=== PATIENT | male | born 1945 | race Caucasian/White ===

== ENCOUNTER → 2016-11-11 | Outpatient (CLI) | payer MEDICARE, OTHER ==
[~2016-11-11] MED LIST: AMITRIPTYLINE25 MG PO; AMLODIPINE5 MG PO; AMOXICILLIN500 MG PO; ANUSOL-HC25 MG R; ASPIRIN81 M1 PO; AZASAN50 MG PO; AZATHIOPRINE50 MG PO; Bactrim Ds 8001 TAB PO; DEXILANT; FLOMAX0.4 MG PO; FLUOXETINE20 MG PO; GABAPENTIN300 MG PO; LISINOPRIL5 MG PO; NITROSTAT0.4 MG SL; OMEPRAZOLE MAGN20 MG PO; ZITHROMAX Z PA250 MG PO
[2016-11-11 10:55] LABS: ALBUMIN 3.3 gm/dl (3.1-4.5); PHOSPHOROUS 3.1 mg/dL (2.5-4.9); POTASSIUM 4.4 mmol/L (3.5-5.1)
== END | disposition home or self-care (01) ==
LOC: LAB 02:18
PROVIDERS: Internal Medicine Nephrology
DX: N18.3 Chronic kidney disease, stage 3 (moderate) (principal)

== ENCOUNTER → 2016-11-25 | Outpatient (CLI) | payer MEDICARE, OTHER | END | disposition home or self-care (01) | LOC: LAB 02:17 | PROVIDERS: Internal Medicine Nephrology | DX: N18.3 Chronic kidney disease, stage 3 (moderate) (principal) ==

== ENCOUNTER → 2017-02-26 | Outpatient (CLI) | payer MEDICARE, OTHER ==
[2017-02-26 09:59] LABS: BASO % 0.5 % (0.0-1.0); EOS # 0.1 10*3/uL (0.0-0.4); EOS % 1.2 % (1.0-4.0); HEMATOCRIT 37.6 % (42.0-52.0); HEMOGLOBIN 12.6 g/dl (14.0-18.0); LYMPH # 0.8 10*3/uL (1.3-4.4); LYMPH % 10.3 % (27.0-41.0); MEAN CELL VOLUME 93.8 fl (80.0-94.0); MEAN CORPUSCULAR HGB 31.4 pg (27.0-31.0); MEAN CORPUSCULAR HGB CONC 33.5 g/dl (33.0-37.0); MEAN PLATELET VOLUME 10.6 fl (9.6-12.3); MONO # 0.5 10*3/uL (0.1-1.0); NEUT # 6.3 10*3/uL (2.3-7.9); NEUT % 81.6 % (47.0-73.0); PLATELET COUNT AUTOMATED 185 10*3/uL (130-400); RED BLOOD COUNT 4.01 10*6/uL (4.50-5.90); RED CELL DISTRI WIDTH 13.5 % (0-14.5); WHITE BLOOD COUNT 7.7 10*3/uL (4.8-10.8)
[2017-02-26 10:26] LABS: C-REACTIVE PROTEIN 0.38 MG/DL (0-0.3)
[2017-02-27 07:08] LABS: COMPLEMENT C4 001834 20 mg/dL (14-44)
== END | disposition home or self-care (01) ==
LOC: LAB 01:25
PROVIDERS: Urology
DX: N40.1 Benign prostatic hyperplasia with lower urinary tract symptoms (principal); I77.6 Arteritis, unspecified

== ENCOUNTER → 2017-03-18 | Outpatient (CLI) | payer MEDICARE, OTHER | END | disposition home or self-care (01) | LOC: CARD 00:56 | DX: I07.1 Rheumatic tricuspid insufficiency (principal); I37.1 Nonrheumatic pulmonary valve insufficiency ==

== ENCOUNTER → 2017-04-28 | Outpatient (CLI) | payer MEDICARE, OTHER ==
[~2017-04-28] MED LIST changes: +HYDROCODONE BIT1 T11 PO; +PROZAC20 MG PO; +Rocaltrol0.25 MCG PO
[2017-04-28 10:05] LABS: BASO % 0.7 % (0.0-1.0); EOS # 0.1 10*3/uL (0.0-0.4); EOS % 1.2 % (1.0-4.0); HEMATOCRIT 35.3 % (42.0-52.0); HEMOGLOBIN 11.7 g/dl (14.0-18.0); LYMPH # 0.7 10*3/uL (1.3-4.4); LYMPH % 11.9 % (27.0-41.0); MEAN CELL VOLUME 95.7 fl (80.0-94.0); MEAN CORPUSCULAR HGB 31.7 pg (27.0-31.0); MEAN CORPUSCULAR HGB CONC 33.1 g/dl (33.0-37.0); MEAN PLATELET VOLUME 10.2 fl (9.6-12.3); MONO # 0.4 10*3/uL (0.1-1.0); NEUT # 4.6 10*3/uL (2.3-7.9); NEUT % 78.7 % (47.0-73.0); PLATELET COUNT AUTOMATED 180 10*3/uL (130-400); RED BLOOD COUNT 3.69 10*6/uL (4.50-5.90); RED CELL DISTRI WIDTH 14.2 % (0-14.5); WHITE BLOOD COUNT 5.9 10*3/uL (4.8-10.8)
[2017-04-28 10:35] LABS: C-REACTIVE PROTEIN 0.4 MG/DL (0-0.3)
[2017-04-29 08:13] LABS: COMPLEMENT C4 001834 20 mg/dL (14-44)
== END | disposition home or self-care (01) ==
LOC: LAB 02:28
PROVIDERS: Internal Medicine Rheumatology
DX: I77.6 Arteritis, unspecified (principal)

== ENCOUNTER 2017-04-29 19:22 | Emergency (ER) | payer MEDICARE, OTHER ==
[~2017-04-29] VITALS: Ht 170.1 cm; Wt 78.9 kg
[~2017-04-29 19:22] MED LIST changes: -HYDROCODONE BIT1 T11 PO; -PROZAC20 MG PO; -Rocaltrol0.25 MCG PO
[2017-04-29 19:38] VITALS: BP 140/83
[2017-04-29] MEDS ORDERED: PROZAC20 MG PO (19:42)
[2017-04-29] MEDS ORDERED: Rocaltrol0.25 MCG PO (19:42)
[2017-04-29] MEDS ORDERED: LISINOPRIL5 MG PO (19:43)
[2017-04-29] MEDS ORDERED: HYDROCODONE BIT1 T11 PO (21:49)
== END 2017-04-29 19:23 | disposition home or self-care (01) ==
LOC: ED 19:22
DX: M54.16 Radiculopathy, lumbar region (principal); Z79.899 Other long term (current) drug therapy; Z79.82 Long term (current) use of aspirin

== ENCOUNTER → 2019-09-28 | Outpatient (CLI) | payer MEDICARE, OTHER ==
[~2019-09-28] MED LIST changes: +HYDROCODONE BIT1 T11 PO; +PROZAC20 MG PO; +Rocaltrol0.25 MCG PO
== END | disposition home or self-care (01) ==
LOC: RAD 09-27 11:45
DX: N20.0 Calculus of kidney (principal); K59.00 Constipation, unspecified; E86.0 Dehydration

== ENCOUNTER → 2020-06-05 | Outpatient (CLI) | payer MEDICARE, OTHER | END | disposition home or self-care (01) | LOC: RAD 09:02 | DX: J94.8 Other specified pleural conditions (principal); R93.7 Abnormal findings on diagnostic imaging of other parts of musculoskeletal system; Q25.46 Tortuous aortic arch ==

== ENCOUNTER → 2021-02-04 | Outpatient (CLI) | payer MEDICARE, OTHER ==
[~2021-02-04] MED LIST changes: -AMLODIPINE5 MG PO; -GABAPENTIN300 MG PO; +IMURAN50 MG PO; +LIPITOR20 MG PO; +NEURONTIN300 MG PO; +NORVASC10 MG PO; +OMEPRAZOLE40 MG PO; +PROSCAR5 M1 PO; +VITAMIN B-121000 MC2 PO
== END | disposition home or self-care (01) ==
LOC: CARD 00:06
PROVIDERS: ATTEND Internal Medicine Cardiovascular Disease
DX: R53.81 Other malaise (principal); I15.1 Hypertension secondary to other renal disorders; N28.89 Other specified disorders of kidney and ureter; R06.00 Dyspnea, unspecified; R06.02 Shortness of breath

== ENCOUNTER → 2021-09-10 | Outpatient (CLI) | payer MEDICARE, OTHER | END | disposition home or self-care (01) | LOC: CT 00:12 | PROVIDERS: ATTEND Internal Medicine | DX: J43.9 Emphysema, unspecified (principal); N28.1 Cyst of kidney, acquired; K57.30 Diverticulosis of large intestine without perforation or abscess without bleeding; N26.1 Atrophy of kidney (terminal); J98.4 Other disorders of lung; R93.89 Abnormal findings on diagnostic imaging of other specified body structures ==

== ENCOUNTER → 2021-10-18 | Outpatient (CLI) | payer MEDICARE, OTHER ==
[~2021-10-18] MED LIST changes: +ELIQUIS5 M1 PO; +IRON325 M1 PO
== END | disposition home or self-care (01) ==
LOC: CARD 00:05
PROVIDERS: ATTEND Internal Medicine Cardiovascular Disease
DX: I49.9 Cardiac arrhythmia, unspecified (principal)

== ENCOUNTER → 2021-12-10 | Outpatient (CLI) | payer MEDICARE, OTHER | END | disposition home or self-care (01) | LOC: US 12-06 00:15 | PROVIDERS: ATTEND Internal Medicine | DX: R59.9 Enlarged lymph nodes, unspecified (principal) ==

== ENCOUNTER → 2022-01-15 | Outpatient (CLI) | payer MEDICARE, OTHER ==
[2022-01-15 10:18] LABS: CREATININE 1.61 mg/dL (0.70-1.30); POTASSIUM 3.6 mmol/L (3.5-5.1)
== END | disposition home or self-care (01) ==
LOC: LAB 01-08 10:32
PROVIDERS: ATTEND Internal Medicine
DX: N18.30 Chronic kidney disease, stage 3 unspecified (principal)

== ENCOUNTER → 2022-08-07 | Outpatient (CLI) | payer MEDICARE, OTHER | END | disposition home or self-care (01) | LOC: NM 07:00 | PROVIDERS: ATTEND Urology | DX: C61 Malignant neoplasm of prostate (principal) ==

== ENCOUNTER → 2022-08-14 | Outpatient (CLI) | payer MEDICARE, OTHER | END | disposition home or self-care (01) | LOC: RAD 02:10 | PROVIDERS: ATTEND Urology | DX: M51.36 Other intervertebral disc degeneration, lumbar region (principal); M48.061 Spinal stenosis, lumbar region without neurogenic claudication; M51.34 Other intervertebral disc degeneration, thoracic region; M85.88 Other specified disorders of bone density and structure, other site; M25.78 Osteophyte, vertebrae; C61 Malignant neoplasm of prostate ==

== ENCOUNTER 2024-02-23 11:42 | Emergency (ER) | payer MEDICARE, OTHER ==
[~2024-02-23] VITALS: Wt 77.1 kg
[2024-02-23 11:52] VITALS: BP 158/80
[2024-02-23] MEDS ORDERED: GOOD NEIGHBOR L10 MG PO (11:55)
[2024-02-23] MEDS ORDERED: OYSTER SHELL 51 EAC5 PO (11:55)
[2024-02-23] MEDS ORDERED: OXYBUTYNIN5 MG PO (11:55)
[2024-02-23] MEDS ORDERED: FLUTICASONE PROP 50 (11:55)
== END 2024-02-23 14:19 | disposition home or self-care (01) ==
LOC: ED 11:42
DX: S46.911A Strain of unspecified muscle, fascia and tendon at shoulder and upper arm level, right arm, initial encounter (principal); S20.211A Contusion of right front wall of thorax, initial encounter; I10 Essential (primary) hypertension; K21.9 Gastro-esophageal reflux disease without esophagitis; M79.7 Fibromyalgia; Z90.49 Acquired absence of other specified parts of digestive tract; Z98.890 Other specified postprocedural states; W01.198A Fall on same level from slipping, tripping and stumbling with subsequent striking against other object, initial encounter; Y93.89 Activity, other specified; Y92.89 Other specified places as the place of occurrence of the external cause; Y99.0 Civilian activity done for income or pay

== ENCOUNTER 2024-02-26 17:37 | Emergency (ER) | payer MEDICARE, OTHER ==
[~2024-02-26] VITALS: Ht 165.1 cm; Wt 79.4 kg
[~2024-02-26 17:37] MED LIST changes: +FLUTICASONE PROP 50; +GOOD NEIGHBOR L10 MG PO; +OXYBUTYNIN5 MG PO; +OYSTER SHELL 51 EAC5 PO
[2024-02-26 17:46] VITALS: BP 135/88
[2024-02-26] MEDS ORDERED: Amoxicillin/Clavulanate Pota 875 MG TAB PO ONE (17:55)
[2024-02-26] MEDS ORDERED: AMOX-CLAV 875-1 EACH PO (17:56)
== END 2024-02-26 18:09 | disposition home or self-care (01) ==
LOC: ED 17:37
DX: S61.552A Open bite of left wrist, initial encounter (principal); L03.114 Cellulitis of left upper limb; S61.451A Open bite of right hand, initial encounter; I10 Essential (primary) hypertension; K21.9 Gastro-esophageal reflux disease without esophagitis; E78.00 Pure hypercholesterolemia, unspecified; F41.9 Anxiety disorder, unspecified; F32.A Depression, unspecified; Z90.49 Acquired absence of other specified parts of digestive tract; Z98.890 Other specified postprocedural states; W55.01XA Bitten by cat, initial encounter; Y93.89 Activity, other specified; Y92.89 Other specified places as the place of occurrence of the external cause; Y99.8 Other external cause status

== ENCOUNTER → 2024-04-11 | Outpatient (CLI) | payer MEDICARE, OTHER ==
[~2024-04-11] MED LIST changes: +AMOX-CLAV 875-1 EACH PO
[2024-04-11 14:28] LABS: POTASSIUM 4.2 mmol/L (3.4-5.1)
== END | disposition home or self-care (01) ==
LOC: LAB 13:52
PROVIDERS: ATTEND Internal Medicine Cardiovascular Disease
DX: I48.3 Typical atrial flutter (principal); I10 Essential (primary) hypertension; R00.1 Bradycardia, unspecified

== ENCOUNTER → 2024-05-03 | Outpatient (CLI) | payer MEDICARE, OTHER | END | disposition home or self-care (01) | LOC: CARD 00:41 → LAB 00:41 → CARD 12:00 | PROVIDERS: ATTEND Internal Medicine Cardiovascular Disease | DX: R00.1 Bradycardia, unspecified (principal); I48.3 Typical atrial flutter; I10 Essential (primary) hypertension ==

== ENCOUNTER 2024-06-20 19:26 | Emergency (ER) | payer MEDICARE, OTHER ==
[~2024-06-20] VITALS: Ht 170.1 cm; Wt 79.4 kg
[2024-06-20 19:42] VITALS: BP 128/53
[2024-06-20] MEDS ORDERED: VALSARTAN-HCTZ1 EAC2 PO (19:54)
== END 2024-06-20 21:52 | disposition home or self-care (01) ==
LOC: ED 19:26
DX: S46.912A Strain of unspecified muscle, fascia and tendon at shoulder and upper arm level, left arm, initial encounter (principal); S09.8XXA Other specified injuries of head, initial encounter; I10 Essential (primary) hypertension; K21.9 Gastro-esophageal reflux disease without esophagitis; M79.7 Fibromyalgia; F41.9 Anxiety disorder, unspecified; F32.A Depression, unspecified; Z90.49 Acquired absence of other specified parts of digestive tract; Z98.890 Other specified postprocedural states; V89.9XXA Person injured in unspecified vehicle accident, initial encounter; Y93.89 Activity, other specified; Y92.89 Other specified places as the place of occurrence of the external cause; Y99.8 Other external cause status

== ENCOUNTER → 2024-07-29 | Outpatient (CLI) | payer MEDICARE, OTHER ==
[~2024-07-29] MED LIST changes: +VALSARTAN-HCTZ1 EAC2 PO
== END | disposition home or self-care (01) ==
LOC: LAB 02:23 → CARD 09:00 → LAB 09:00
PROVIDERS: ATTEND Internal Medicine Cardiovascular Disease
DX: I10 Essential (primary) hypertension (principal); R00.1 Bradycardia, unspecified; I48.92 Unspecified atrial flutter; R53.1 Weakness

== ENCOUNTER 2024-08-08 11:01 | Emergency (ER) | payer MEDICARE, OTHER ==
[2024-08-08 11:44] LABS: BASO % 0.2 % (0.0-1.0); EOS % 0.1 % (1.0-4.0); HEMATOCRIT 32.8 % (42.0-52.0); LYMPH # 0.9 10*3/uL (1.3-4.4); LYMPH % 10.2 % (27.0-41.0); MEAN CELL VOLUME 91.9 fl (80.0-94.0); MEAN CORPUSCULAR HGB CONC 32.6 g/dl (33.0-37.0); MEAN PLATELET VOLUME 9.7 fl (9.6-12.3); MONO # 0.6 10*3/uL (0.1-1.0); MONO % 6.3 % (3.0-9.0); NEUT # 7.6 10*3/uL (2.3-7.9); NEUT % 82.8 % (47.0-73.0); PLATELET COUNT AUTOMATED 206 10*3/uL (130-400); RED BLOOD COUNT 3.57 10*6/uL (4.50-5.90); RED CELL DISTRI WIDTH 15.9 % (0-14.5); WHITE BLOOD COUNT 9.2 10*3/uL (4.8-10.8)
[2024-08-08 12:03] LABS: POTASSIUM 3.5 mmol/L (3.4-5.1)
[2024-08-08 12:19] VITALS: BP 172/79
== END 2024-08-08 14:41 | disposition short-term general hospital (02) ==
LOC: ED 11:01
PROVIDERS: Internal Medicine
DX: S00.83XA Contusion of other part of head, initial encounter (principal); M54.2 Cervicalgia; M79.602 Pain in left arm; R53.1 Weakness; I10 Essential (primary) hypertension; K21.9 Gastro-esophageal reflux disease without esophagitis; M79.7 Fibromyalgia; Z90.49 Acquired absence of other specified parts of digestive tract; Z98.890 Other specified postprocedural states; W01.198A Fall on same level from slipping, tripping and stumbling with subsequent striking against other object, initial encounter; Y93.89 Activity, other specified; Y92.89 Other specified places as the place of occurrence of the external cause; Y99.8 Other external cause status

== ENCOUNTER → 2024-09-15 | Outpatient (CLI) | payer MEDICARE, OTHER | END | disposition home or self-care (01) | LOC: CT 00:59 | PROVIDERS: ATTEND Physician Assistant | DX: S06.5XAA Traumatic subdural hemorrhage with loss of consciousness status unknown, initial encounter (principal); G31.89 Other specified degenerative diseases of nervous system; X58.XXXA Exposure to other specified factors, initial encounter; Y93.89 Activity, other specified; Y92.89 Other specified places as the place of occurrence of the external cause; Y99.8 Other external cause status ==

== ENCOUNTER → 2024-10-20 | Outpatient (CLI) | payer MEDICARE, OTHER | END | disposition home or self-care (01) | LOC: CT 00:22 | PROVIDERS: ATTEND Neurological Surgery | DX: S06.5XAA Traumatic subdural hemorrhage with loss of consciousness status unknown, initial encounter (principal); X58.XXXA Exposure to other specified factors, initial encounter; Y93.89 Activity, other specified; Y92.89 Other specified places as the place of occurrence of the external cause; Y99.8 Other external cause status ==

== ENCOUNTER → 2024-11-04 | Outpatient (CLI) | payer MEDICARE, OTHER | END | disposition home or self-care (01) | LOC: CT 10:56 | PROVIDERS: ATTEND Neurological Surgery | DX: S06.5XAA Traumatic subdural hemorrhage with loss of consciousness status unknown, initial encounter (principal); G93.89 Other specified disorders of brain; X58.XXXA Exposure to other specified factors, initial encounter; Y93.89 Activity, other specified; Y92.89 Other specified places as the place of occurrence of the external cause; Y99.8 Other external cause status ==

== ENCOUNTER → 2024-12-05 | Outpatient (CLI) | payer MEDICARE, OTHER | END | disposition home or self-care (01) | LOC: CT 11-29 02:33 | PROVIDERS: ATTEND Neurological Surgery | DX: S06.5XAD Traumatic subdural hemorrhage with loss of consciousness status unknown, subsequent encounter (principal); X58.XXXD Exposure to other specified factors, subsequent encounter ==

== ENCOUNTER → 2025-01-09 | Outpatient (CLI) | payer MEDICARE, OTHER | END | disposition home or self-care (01) | LOC: LAB 14:15 | DX: C61 Malignant neoplasm of prostate (principal); Z51.11 Encounter for antineoplastic chemotherapy; F32.A Depression, unspecified; N17.9 Acute kidney failure, unspecified; R00.1 Bradycardia, unspecified ==

== ENCOUNTER → 2025-03-02 | Outpatient (CLI) | payer MEDICARE, OTHER | END | disposition home or self-care (01) | LOC: CT 02:06 | PROVIDERS: ATTEND Neurological Surgery | DX: I67.82 Cerebral ischemia (principal) ==

== ENCOUNTER → 2025-07-18 | Outpatient (CLI) | payer MEDICARE, OTHER ==
[2025-07-18 13:54] LABS: BASO # 0.0 10*3/uL (0.0-0.1); BASO % 0.6 % (0.0-1.0); EOS # 0.1 10*3/uL (0.0-0.4); EOS % 1.0 % (1.0-4.0); MEAN CELL VOLUME 86.9 fl (80.0-94.0); MEAN CORPUSCULAR HGB 27.2 pg (27.0-31.0); MEAN PLATELET VOLUME 10.5 fl (9.6-12.3); MONO # 0.6 10*3/uL (0.1-1.0); MONO % 8.3 % (3.0-9.0); NEUT # 5.1 10*3/uL (2.3-7.9); NEUT % 70.7 % (47.0-73.0); NUCLEATED RED BLOOD CELL 0.0 % (0.0-0.0); NUCLEATED RED BLOOD CELL 0.0 10*3/uL (0.0-0.0); PLATELET COUNT AUTOMATED 203 10*3/uL (130-400); RED CELL DISTRI WIDTH 15.7 % (0-14.5)
[2025-07-18 14:33] LABS: BUN 27.0 mg/dl (9-23); SGPT/ALT 7.0 U/L (5-49)
== END | disposition home or self-care (01) ==
LOC: LAB 03:12
PROVIDERS: ATTEND Physician Assistant Medical
DX: C61 Malignant neoplasm of prostate (principal); Z51.11 Encounter for antineoplastic chemotherapy; F32.A Depression, unspecified; N17.9 Acute kidney failure, unspecified; R00.1 Bradycardia, unspecified